=== PATIENT | female | born 2000 | race Caucasian/White ===

== ENCOUNTER 2024-10-08 08:15 | Outpatient (RCR) | payer OTHER, SELFPAY | END 2024-10-08 08:56 | disposition home or self-care (01) | PROVIDERS: PCP Family Medicine; Visit Provider Emergency Medicine | DX: M54.50 Low back pain, unspecified (principal); M41.9 Scoliosis, unspecified; Z51.89 Encounter for other specified aftercare | CPT/HCPCS: 97032; 97110; 97140; 97161 ==